=== PATIENT | female | born 1950 | race Caucasian/White ===

== ENCOUNTER 2019-09-13 07:28 | Emergency (ER) | payer MEDICARE ==
--- NOTE | 2019-09-13 08:18 | UC ---
Respiratory Complaint HPI - History of Current Complaint Chief Complaint: UCRespiratory Stated Complaint: COUGH Time Seen by Provider: 09/13/19 07:37 Hx Obtained From: Patient ?: No Onset/Duration: Gradual Onset, Lasting Weeks - more than 2 weeks Severity Initially: Mild Severity Currently: Moderate - cough Pain Intensity: 0 Character: Cough: Nonproductive - spasmodic with wheezing Aggravating Factors: Recumbent Position Alleviating Factors: Bronchodilator Associated Signs And Symptoms: Positive: Fever - 10 days ago, Wheezing. Negative: Pleuritic Chest Pain - Risk Factors Cardiac Risk Factors: Hypertension Tuberculosis Risk Factors: Negative - Allergies/Home Medications Allergies/Adverse Reactions: Allergies Allergy/AdvReac Type Severity Reaction Status Date / Time Penicillins Allergy Unknown Verified 09/13/19 07:44 Reaction Details Home Medications: Home Medications Amlodipine Besylate [Norvasc] 5 mg PO DAILY 09/13/19 [History Confirmed 09/13/19 ] Hydrochlorothiazide TAB* [Hydrodiuril TAB*] 25 mg PO DAILY 09/13/19 [History Confirmed 09/13/19] Montelukast Sodium TAB* [Singulair TAB*] 10 mg PO DAILY 09/13/19 [History Confirmed 09/13/19] Multivitamins/Minerals TAB* [Thera M Plus TAB*] 1 tab PO DAILY 09/13/19 [ History Confirmed 09/13/19] Naproxen Sodium [Aleve] 220 mg PO BID PRN 09/13/19 [History Confirmed 09/13/19] Potassium Chlor TAB* [Klor Con ER TAB*] 10 meq PO DAILY 09/13/19 [History Confirmed 09/13/19] Sertraline* [Zoloft*] 50 mg PO DAILY 09/13/19 [History Confirmed 09/13/19] PMH/Surg Hx/FS Hx/Imm Hx Previously Healthy: Yes Cardiovascular History: Hypertension Respiratory History: Asthma - on singulair; uses albuterol as needed, Pneumonia - Surgical History Surgical History: Yes Surgery Procedure, Year, and Place: C sections, cholecystectomy, ovarian cyst removed, varicose veins - Family History Known Family History: Positive: None - Social History Occupation: Retired Lives: Alone Alcohol Use: Occasionally Substance Use Type: None Smoking Status (MU): Never Smoked Tobacco Review of Systems All Other Systems Reviewed And Are Negative: Yes Constitutional: Positive: Negative - no recent fever Eyes: Positive: Negative Respiratory: Positive: Shortness Of Breath, Cough, Other - wheezing Cardiovascular: Positive: Negative Gastrointestinal: Positive: Negative Genitourinary: Positive: Negative Is Patient Immunocompromised?: No Physical Exam - Summary Physical Exam Summary: Appearance: The patient is well-appearing, frequent spasmodic cough. Eyes: Conjunctiva are clear. Pupils are equal and reactive to light and accommodation. Extra ocular muscle movement is intact. ENT: The hearing is grossly normal, the pharynx is normal, and the TMs are normal. There is no muffled or hoarse voice. No stridor. Neck: The neck is supple and there is no lymphadenopathy. Respiratory: The chest is non-tender to palpation and without crepitus. There is no respiratory distress. Positive for rhonchi and wheezing. No crackles. Cardiovascular: Heart sounds reveal a regular rate and rhythm. There are no clicks, rubs or murmurs. There are no carotid bruits or thrills. Circulation is grossly intact. Abdomen: The abdomen is soft and nontender. There is no organomegaly. Bowel sounds are present and within normal limits. No point tenderness at McBurneys point. No CVA tenderness. Musculoskeletal: Strength is intact. The patient moves all extremities. Neurological: The patient is alert. Motor and sensory are examination grossly intact. Speech is normal. Psychological: The patient displays age appropriate behavior, and is conversant. GCS=15. Skin: Negative for rashes. Triage Information Reviewed: Yes Vital Signs: Initial Vital Signs Temp 98.2 F 09/13/19 07:39 Pulse 98 09/13/19 07:39 Resp 16 09/13/19 07:39 BP 175/81 09/13/19 07:39 Pulse Ox 93 09/13/19 07:39 Respiratory Course/Dx - Course Course Of Treatment: Normally healthy 68-year-old female with a history of asthma, hypertension, and 2 is a nonsmoker, comes to the urgent care Center with a complaint of cough for more than 2 weeks with significant wheezing. She is usually on Singulair and uses albuterol as needed. She has had to use her albuterol 4 times a day because of cough. She did have a fever 10 days ago, but not more recently. She is mildly short of breath. Her pulse ox is 93. She does not complaint of chest pain or fever at this time. Her physical examination is positive for wheezing and rhonchi at both bases. There are no crackles appreciated. My diagnosis is bronchitis with bronchospasm. Her condition, probably viral, has exacerbated her long time asthma. I discussed her condition with her and I will start the patient on a prednisone taper. She knows to follow up immediately for any signs or symptoms consistent with pneumonia. Her blood pressure was elevated. She is being treated with amlodipine and hydrochlorothiazide. She is new to the area, but will follow up with a repeat blood pressure check over the next month or 2 with her new care provider. - Differential Dx/Diagnosis Differential Diagnosis/HQI/PQRI: Asthma, Bronchitis, Lower Resp Infection, Sinusitis Provider Diagnosis: Bronchospasm with bronchitis, acute Discharge ED - Sign-Out/Discharge Documenting (check all that apply): Patient Departure All imaging exams completed and their final reports reviewed: No Studies - Discharge Plan Condition: Stable Disposition: HOME Prescriptions: predniSONE [Prednisone 20 MG TAB] 20 mg PO SEE INSTRUCTIONS 10 Days #19 tab MDD 3 Patient Education Materials: Hypertension (ED), Bronchospasm (ED) Referrals: No Primary Care Phys,NOPCP [Primary Care Provider] - Additional Instructions: WE DISCUSSED: BRONCHITIS WITH BRONCHOSPASM (WHEEZING): You have bronchitis with bronchospasm (wheezing). Sometimes people develop wheezing with a chest cold. This occurs either because of an underlying tendency toward asthma or because the virus itself irritates the bronchial tubes. This irritation causes cough, shortness of breath, and wheezing. At home, we'll treat you with a bronchodilator inhaler. Most cases of bronchitis get better without antibiotics. We prescribe antibiotics when we believe bacteria are damaging your airways, or if there's high risk the bronchitis will worsen into pneumonia. Increase your fluid intake. A cool mist humidifier may make your lungs more comfortable. An expectorant (cough medicine that loosens phlegm) can help. Repeated episodes of bronchitis and bronchospasm may result in lung damage -- for example, chronic bronchitis, recurrent pneumonias, or emphysema. If you develop a fever, increased wheezing, chest pain, or severe shortness of breath, you should contact the doctor immediately. PREDNISONE: 20 MG TAPER DOSIN,3,3,2,2,2,1,1,1,1 ALBUTEROL AND SPACER: 2 PUFFS, FOUR TIMES A DAY FOR 2-5 DAYS FOR COUGH STAND UNDER SHOWER STREAM TO LOOSEN SECRETIONS. STAY AWAY FROM ANY SMOKE OR IRRITANTS. LOTS OF TEA or WARM FLUIDS. Recheck for increased chest pain, temperature, cough, shortness of breath. This may mean you are developing pneumonia. - Billing Disposition and Condition Condition: STABLE Disposition: Home
== END 2019-09-13 08:36 | disposition home or self-care (01) ==
LOC: UCEAST 07:28
DX: J20.9 Acute bronchitis, unspecified (principal); J45.909 Unspecified asthma, uncomplicated; I10 Essential (primary) hypertension; Z79.899 Other long term (current) drug therapy; Z88.0 Allergy status to penicillin
CPT/HCPCS: 99202; G0463

== ENCOUNTER 2019-12-02 08:01 | Emergency (ER) | payer MEDICARE, OTHER ==
[2019-12-02 09:00] VITALS: BP 121/78
--- NOTE | 2019-12-02 09:08 | UC ---
Respiratory Complaint HPI - HPI Summary HPI Summary: 1 WEEK OF COUGH, SHORTNESS OF BREATH WITH EXERTION AND WHEEZE. YESTERDAY NOTICED ELEVATED TEMP 99.9. HAS PLEURITIC PAIN ACROSS MID BACK AND RIGHT SIDE. NO ST, EAR PAIN, N/V. NO RECENT TRAVEL OR COVID-19 EXPOSURE OF WHICH SHE IS AWARE. - History of Current Complaint Chief Complaint: UCGeneralIllness Stated Complaint: COUGH/BACK PAIN Time Seen by Provider: 12/02/19 08:08 Hx Obtained From: Patient Onset/Duration: Gradual Onset, Lasting Days, Still Present Timing: Constant Severity Initially: Moderate Severity Currently: Moderate Pain Intensity: 1 Pain Scale Used: 0-10 Numeric Character: Cough: Productive Aggravating Factors: Nothing Alleviating Factors: Nothing Associated Signs And Symptoms: Positive: Dyspnea, Fever, Wheezing. Negative: Nasal Congestion - Allergies/Home Medications Allergies/Adverse Reactions: Allergies Allergy/AdvReac Type Severity Reaction Status Date / Time Penicillins Allergy Unknown Verified 12/02/19 08:09 Reaction Details Home Medications: Home Medications Amlodipine Besylate [Norvasc] 5 mg PO DAILY 09/13/19 [History Confirmed 12/02/19 ] Hydrochlorothiazide TAB* [Hydrodiuril TAB*] 25 mg PO DAILY 09/13/19 [History Confirmed 12/02/19] Montelukast Sodium TAB* [Singulair 10 MG TAB*] 10 mg PO DAILY 09/13/19 [History Confirmed 12/02/19] Multivitamins/Minerals TAB* [Thera M Plus TAB*] 1 tab PO DAILY 09/13/19 [ History Confirmed 12/02/19] Naproxen Sodium [Aleve] 220 mg PO BID PRN 09/13/19 [History Confirmed 12/02/19] Potassium Chlor TAB* [Klor Con ER TAB 10 MEQ*] 10 meq PO DAILY 09/13/19 [ History Confirmed 12/02/19] Sertraline* [Zoloft*] 50 mg PO DAILY 09/13/19 [History Confirmed 12/02/19] Doxycycline Monohydrate 1 cap PO BID #20 cap 12/02/19 [Rx] PMH/Surg Hx/FS Hx/Imm Hx - Additional Past Medical History Additional PMH: ARTHRITIS Cardiovascular History: Hypertension Respiratory History: Asthma - Surgical History Surgical History: Yes Surgery Procedure, Year, and Place: C sections, cholecystectomy, ovarian cyst removed, varicose veins - Family History Known Family History: Positive: None - Social History Alcohol Use: Rare Substance Use Type: None Smoking Status (MU): Former Smoker Length of Time of Smoking/Using Tobacco: 12 years When Did the Patient Quit Smoking/Using Tobacco: 1983 Review of Systems All Other Systems Reviewed And Are Negative: Yes Constitutional: Positive: Fever ENT: Negative: Nasal Discharge Respiratory: Positive: Shortness Of Breath, Cough, Other - WHEEZE Cardiovascular: Positive: Negative Gastrointestinal: Positive: Negative Musculoskeletal: Positive: Negative Neurological/Mental Status: Positive: Negative Physical Exam Triage Information Reviewed: Yes Appearance: Well-Appearing, No Pain Distress, Well-Nourished Vital Signs: Initial Vital Signs Temp 97.6 F 12/02/19 08:58 Pulse 100 12/02/19 08:58 Resp 16 12/02/19 08:58 BP 121/78 12/02/19 08:58 Pulse Ox 93 12/02/19 08:58 Laboratory Tests 12/02/19 09:02 Influenza A (Rapid) Negative Influenza B (Rapid) Negative Vital Signs Reviewed: Yes Eyes: Positive: Conjunctiva Clear ENT: Positive: Hearing grossly normal, Pharynx normal, TMs normal Neck: Positive: Supple Respiratory Exam: Normal Cardiovascular Exam: Normal Abdomen Description: Positive: Soft Musculoskeletal: Positive: No Edema Neurological: Positive: Alert Psychological: Positive: Age Appropriate Behavior Skin: Negative: Rashes Diagnostics - Radiology CXR Radiology Interpretation Completed By: Radiologist Summary of Radiographic Findings: No acute cardiopulmonary process by radiograph. Respiratory Course/Dx - Course Course Of Treatment: FLU NEGATIVE. CXR UNREMARKABLE. GIVEN RESPIRATORY SYMPTOMS, TESTING FOR COVID 19 DONE TODAY. PATIENT BEING DISCHARGED HOME TO SELF-ISOLATION AND WILL BE CONTACTED BY HD WITH RESULTS. CONTACT/DROPLET PRECAUTIONS TAKEN BY MYSELF DURING ENCOUNTER. VITAL SIGNS AND SWABS COLLECTED BY ME. PATIENTS OXYGEN SLIGHTLY LOW AT 93%. SHE STATES THIS IS NOT HER NORMAL BASELINE. WILL COVER FOR INFECTIOUS PROCESS WITH DOXYCYCLINE TWICE DAILY FOR 10 DAYS. PATIENT HAS HER INHALER AT HOME WHICH SHE SAYS IS HELPING. SHE NEEDS HER OXYGEN LEVELS REEVALUATED IN THE NEXT FEW DAYS. TO THE ER WITHOUT FAIL IF SYMPTOMS WORSEN. - Differential Dx/Diagnosis Provider Diagnosis: Acute bronchitis Discharge ED - Sign-Out/Discharge Documenting (check all that apply): Patient Departure All imaging exams completed and their final reports reviewed: Yes - Discharge Plan Condition: Stable Disposition: HOME Prescriptions: Doxycycline Monohydrate 1 cap PO BID #20 cap Patient Education Materials: Acute Bronchitis (ED) Forms: COVID-19 Tested & Isolation Referrals: [facility] [Outside] - 2 Days Additional Instructions: FLU NEGATIVE. CHEST XRAY UNREMARKABLE. GIVEN YOUR RESPIRATORY SYMPTOMS TESTING FOR COVID-19 COMPLETED TODAY. YOU SHOULD EXPECT RESULTS IN 3-7 DAYS. YOU ARE BEING DISCHARGED TO SELF-ISOLATION AT HOME. GET REST AND STAY WELL HYDRATED. THE HEALTH DEPARTMENT WILL BE FOLLOWING UP WITH YOU. CALL 911 IF YOU DEVELOP WORSENING RESPIRATORY DISTRESS, FEVER, PAIN OR ANY OTHER CONCERNING SYMPTOMS. GIVEN YOUR HISTORY OF ASTHMA WILL COVER FOR INFECTIOUS PROCESS WITH ANTIBIOTICS. TAKE FOR THE FULL 10 DAYS. USE YOUR INHALER PRESCRIBED. FOLLOW- UP WITH A PCP OR RETURN HERE IN 2 DAYS FOR RECHECK YOUR OXYGEN LEVELS WERE SLIGHTLY LOW. CALL THE NUMBER BELOW FOR ASSISTANCE IN ESTABLISHING WITH A PCP An additional resource available to assist in finding the appropriate physician for your health care needs is the [facility] ([facility]). You may contact them by calling [phone]. - Billing Disposition and Condition Condition: STABLE Disposition: Home
[2019-12-02 09:14] LABS: Influenza A Molecular Negative (Negative); Influenza B Molecular Negative (Negative)
== END 2019-12-02 10:05 | disposition home or self-care (01) ==
LOC: UCEAST 08:01
DX: J20.9 Acute bronchitis, unspecified (principal); Z20.828 Contact with and (suspected) exposure to other viral communicable diseases; I10 Essential (primary) hypertension; Z79.899 Other long term (current) drug therapy; Z88.0 Allergy status to penicillin; Z87.891 Personal history of nicotine dependence
CPT/HCPCS: 71046; 87635; 99212; G0463; G2023

== ENCOUNTER 2019-12-06 08:18 | Emergency (ER) | payer MEDICARE ==
--- NOTE | 2019-12-06 08:37 | UC ---
Shortness of Breath HPI - HPI Summary HPI Summary: PATIENT WAS SEEN HERE 4 DAYS AGO ON 12/02/2019 WITH SHORTNESS OF BREATH, WHEEZE AND PLEURITIC PAIN. HAD NEGATIVE FLU AND COVID-19 TEST. CHEST X-RAY WAS UNREMARKABLE. PATIENT HAS A HISTORY OF ASTHMA AND WAS PLACED ON DOXYCYCLINE FOR POSSIBLE INFECTIOUS PROCESS. ENCOURAGED TO CONTINUE USING HER INHALER NEEDED. SHE COMES IN TODAY COMPLAINING OF WORSENING SHORTNESS OF BREATH, PLEURISY AND FATIGUE. ON ARRIVAL O2 SAT FOUND TO BE 89%. PATIENT TACHYCARDIC. VISIBLY SHORT OF BREATH. - History of Current Complaint Stated Complaint: SHORT OF BREATH CHEST PAIN Time Seen by Provider: 12/06/19 08:20 Hx Obtained From: Patient Onset/Duration: Gradual Onset, Lasting Days, Still Present Timing: Constant Current Severity: Moderate Dyspnea At: Rest Aggravating Factors: Movement, Deep Breaths Alleviating Factors: Nothing Associated Signs & Symptoms: Positive: Cough (Nonproductive), Wheezing, Chest Pain w/Cough. Negative: Fever - Allergy/Home Medications Allergies/Adverse Reactions: Allergies Allergy/AdvReac Type Severity Reaction Status Date / Time Penicillins Allergy Unknown Verified 12/06/19 09:05 Reaction Details Home Medications: Home Medications Amlodipine Besylate [Norvasc] 5 mg PO DAILY 09/13/19 [History Confirmed 12/02/19 ] Hydrochlorothiazide TAB* [Hydrodiuril TAB*] 25 mg PO DAILY 09/13/19 [History Confirmed 12/02/19] Montelukast Sodium TAB* [Singulair 10 MG TAB*] 10 mg PO DAILY 09/13/19 [History Confirmed 12/02/19] Multivitamins/Minerals TAB* [Thera M Plus TAB*] 1 tab PO DAILY 09/13/19 [ History Confirmed 12/02/19] Naproxen Sodium [Aleve] 220 mg PO BID PRN 09/13/19 [History Confirmed 12/02/19] Potassium Chlor TAB* [Klor Con ER TAB 10 MEQ*] 10 meq PO DAILY 09/13/19 [ History Confirmed 12/02/19] Sertraline* [Zoloft*] 50 mg PO DAILY 09/13/19 [History Confirmed 12/02/19] Doxycycline Monohydrate 1 cap PO BID #20 cap 12/02/19 [Rx] PMH/Surg Hx/FS Hx/Imm Hx - Additional Past Medical History Additional PMH: ARTHRITIS Cardiovascular History: Hypertension Respiratory History: Asthma - Surgical History Surgical History: Yes Surgery Procedure, Year, and Place: C sections, cholecystectomy, ovarian cyst removed, varicose veins - Family History Known Family History: Positive: None - Social History Alcohol Use: Rare Substance Use Type: None Smoking Status (MU): Former Smoker Length of Time of Smoking/Using Tobacco: 12 years When Did the Patient Quit Smoking/Using Tobacco: 1983 Review of Systems All Other Systems Reviewed And Are Negative: Yes Constitutional: Positive: Fatigue ENT: Positive: Negative Respiratory: Positive: Shortness Of Breath, Cough Cardiovascular: Positive: Chest Pain Gastrointestinal: Positive: Negative Physical Exam - Summary Physical Exam Summary: TO DECREASE THE RISK OF TRANSMISSION OF POSSIBLE COVID-19 I CONDUCTED THIS INTERVIEW USING TELEMEDICINE WHICH LIMITS THE PHYSICAL EXAM. Triage Information Reviewed: Yes Appearance: Well-Nourished Vital Signs: Vital Signs (72 hours) 12/06/19 08:20 Temperature 97.8 F Pulse Rate 117 Respiratory 20 Rate Blood Pressure 131/93 (mmHg) O2 Sat by Pulse 89 Oximetry Vital Signs Reviewed: Yes ENT: Positive: Hearing grossly normal Neck: Positive: Supple Respiratory: Positive: Other: - PT AUDIBLY SOB WHEN SPEAKING. PER NURSING - PT WITH SLIGHTLY INCREASED WORK OF BREATHING Cardiovascular: Positive: Tachycardia Neurological: Positive: Alert Psychological: Positive: Age Appropriate Behavior Shortness of Breath Dx - Course Course Of Treatment: PT WITH WORSENING SHORTNESS OF BREATH AND PLEURITIC PAIN SINCE ENCOUNTER ON 2019 DESPITE DOXY, ALBUTEROL. TODAY O2 SAT ON ARRIVAL WAS 89%. PT TACHYCARDIC. CONSIDER PE. TO [facility] BY [facility]BUL[facility]. CONTACT/DROPLET PRECAUTIONS TAKEN BY NURSING DURING ENCOUNTER. TO DECREASE THE RISK OF TRANSMISSION OF POSSIBLE COVID-19 MY PART OF THE INTERVIEW WAS DONE USING TELEMEDICINE. - Differential Dx/Diagnosis Provider Diagnosis: Increasing shortness of breath, Hypoxia - Physician Notification/Consults Discussed Patient Care With: Davie Etseves - TO [facility] BY [facility] Time Discussed With Above Provider: 08:35 Instructed by Provider To: MD Will See In ED Discharge ED - Sign-Out/Discharge Documenting (check all that apply): Patient Departure All imaging exams completed and their final reports reviewed: No Studies - Discharge Plan Condition: Guarded Disposition: TRANS HIGHER LVL OF CARE FAC Referrals: No Primary Care Phys,NOPCP [Primary Care Provider] - - Billing Disposition and Condition Condition: GUARDED Disposition: Trans Higher Lvl of Care Fac
[2019-12-06 09:05] VITALS: BP 131/93
== END 2019-12-06 09:05 | disposition short-term general hospital (02) ==
LOC: UCEAST 08:18
DX: R06.02 Shortness of breath (principal); R09.02 Hypoxemia; R07.81 Pleurodynia; R05 Cough; I10 Essential (primary) hypertension; Z79.899 Other long term (current) drug therapy; Z88.0 Allergy status to penicillin; Z87.891 Personal history of nicotine dependence
CPT/HCPCS: 99213; G0463